=== PATIENT | male | born 1975 | race Caucasian/White ===

== ENCOUNTER 2016-09-21 08:35 | Emergency (ER) | payer BC ==
[2016-09-21 08:46] VITALS: BP 107/74
--- NOTE | 2016-09-21 09:45 | UC ---
Complaint Male HPI - HPI Summary HPI Summary: Left testicle pain onset off/on 2 days ago, worsened overnight; increased pain with palpation. He denies any recent increased activity or trauma. denies risk of infection or std as he has not had intercourse recently. no fever, no discharge. no redness or swelling. pain was 4/10 1/10 PM. He rode his bike to work last night, about 1 hr ride. several hours after that he developed severe pain escalating to 10/10. no dysuria, no hematuria. [employer] co-worker drove him here to [facility] this morning. pain is excruciating "x1000" if touched. - History of Current Complaint Chief Complaint: UCGU Stated Complaint: PERSONAL Time Seen by Provider: 09/21/16 08:43 - Allergies/Home Medications Allergies/Adverse Reactions: Allergies Allergy/AdvReac Type Severity Reaction Status Date / Time dust mites Allergy Rash Uncoded 09/21/16 08:46 Home Medications: Home Medications Ibuprofen TAB* [Motrin TAB* 800 MG] 800 mg PO ONCE PRN 09/21/16 [History Confirmed 09/21/16] PMH/Surg Hx/FS Hx/Imm Hx Previously Healthy: Yes Endocrine History Of: Denies: Diabetes, Thyroid Disease, Hyperthyroidism, Hypothyroidism, Dyslipidemia Cardiovascular History Of: Reports: Cardiac Disorders - murmur Denies: Hypertension, Pacemaker/ICD, Myocardial Infarction, Congestive Heart Failure, Atrial Fibrillation, Deep Vein Thrombosis, Bleeding Disorders Respiratory History Of: Denies: COPD, Asthma, Bronchitis, Pneumonia, Pulmonary Embolism GI/ History Of: Denies: Gastroesophageal Reflux, Ulcer, Gastrointestinal Bleed, Gall Bladder Disease, Kidney Stones, Diverticulitis, Renal Disease, Urosepsis Neurological History Of: Reports: Migraine - 2-3 TIMES A YEAR Denies: TIA, CVA, Dementia, Seizures Psychological History Of: Reports: Anxiety - NO MEDS, Depression - NO MEDS, Bipolar Disorder Denies: Schizophrenia, Post Traumatic Stress Disorder Cancer History Of: Denies: Lung Cancer, Colorectal Cancer, Breast Cancer, Prostate Cancer, Cervical Cancer Other History Of: Negative For: HIV, Hepatitis B, Hepatitis C, Anticoagulant Therapy - Surgical History Surgical History: None Surgery Procedure, Year, and Place: Facial, Left Elbow and Left Wrist Reconstruction s/p Fall, 2004. R wrist; vsasectomy 2014 or 2015 - Family History Known Family History: Positive: Other - SON HAD FLU Negative: Cardiac Disease, Hypertension, Diabetes Family History: none - Social History Alcohol Use: Rare Alcohol Amount: 1 DRINK 2 TIMES A MONTH Substance Use Type: None Smoking Status (MU): Former Smoker Type: Cigarettes Amount Used/How Often: occasional use Length of Time of Smoking/Using Tobacco: 10 YEARS Have You Smoked in the Last Year: No When Did the Patient Quit Smoking/Using Tobacco: 4-5 YRS AGO - Immunization History Most Recent Influenza Vaccination: doesn't get Most Recent Tetanus Shot: 09/25/13 Review of Systems Constitutional: Negative Skin: Negative Eyes: Negative ENT: Negative Respiratory: Negative Cardiovascular: Negative Gastrointestinal: Negative Genitourinary: Other - left testicle pain. Motor: Negative Neurovascular: Negative Musculoskeletal: Negative Neurological: Negative Psychological: Negative All Other Systems Reviewed And Are Negative: Yes Physical Exam Triage Information Reviewed: Yes Appearance: Pain Distress Vital Signs: Initial Vital Signs Temp 98.3 F 09/21/16 08:39 Pulse 89 09/21/16 08:39 Resp 28 09/21/16 08:39 BP 107/74 09/21/16 08:39 Vital Signs Reviewed: Yes Eye Exam: Normal ENT Exam: Normal Neck exam: Normal Neck: Positive: Supple, Nontender, No Lymphadenopathy Respiratory: Positive: Lungs clear Cardiovascular Exam: Normal Cardiovascular: Positive: RRR, No Murmur, Pulses Normal, Brisk Capillary Refill Abdomen Description: Positive: Nontender, Soft Musculoskeletal Exam: Normal Neurological Exam: Normal Psychological Exam: Normal Skin Exam: Normal - Additional Comments exam - left testicle with mild swelling adn mild erythema, nml temp to touch. he has extreme pain with palpation which makes exam very difficult. He is sitting in chairin supine position with pelvic off the chair and still is very uncomfortable. when ambulating he walks very slowly with wide gait and has to stop to rest on the wall. Exam done with MARIAH, RN present. there is no penile d /c or lesions. 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 Staff called Dr Ramires's office to inquire and there was no answer around 0940. Closest next ER is [facility] [place] that he agrees to go to via ambulance. I feel that bc risk of surgical emergency with potential torsion, [facility] [place] is the closest ER and will therefore go there. He is very agreeable with this plan and transfer via ambulance and understand complications of testicular failure, infertility, permanent disability if not addressed. Of note, Udip was neg except for WBCs of 75. This coulc be epididymitis, however, given the extreme nature of his pain and recent bike ride , torsion cannot be ruled out. - Differential Dx/Diagnosis Differential Diagnosis/HQI/PQRI: Epididymitis, Testicular Torsion, Urinary Tract Infection Provider Diagnoses: testicle pain - Physician Notifications Discussed Patient Care With: Dr Angulo at [facility] [place] [facility], [facility]. Reviewed pt and care and plan. He is accepts pt. Time Discussed With Above Provider: 09:55 Discharge - Discharge Plan Condition: Fair Disposition: TRANS HIGHER [facility] OF CARE FAC
[2016-09-21] MEDS ORDERED: Morphine INJ* 2 MG/ML 1 ML CARPUJECT IV ONE (09:55)
== END 2016-09-21 10:16 | disposition short-term general hospital (02) ==
LOC: UCCORT 08:35
DX: N50.812 Left testicular pain (principal); Z87.891 Personal history of nicotine dependence
CPT/HCPCS: 96374; 99213; G0463; J2270

== ENCOUNTER 2017-01-11 08:22 | Emergency (ER) | payer BC ==
[2017-01-11 08:37] VITALS: BP 131/70
--- NOTE | 2017-01-11 08:57 | UC ---
Lower Extremity/Ankle HPI - HPI Summary HPI Summary: dropped a 20 lb dumbbell on his left 5th digit last pm. Had to work all night. - History of Current Complaint Chief Complaint: UCLowerExtremity Stated Complaint: LEFT PINKY TOE PAIN Time Seen by Provider: 01/11/17 08:55 Hx Obtained From: Patient Onset/Duration: Sudden Onset, Lasting Hours, Still Present Severity Initially: Moderate Severity Currently: Moderate Pain Intensity: 8 Pain Scale Used: 0-10 Numeric Aggravating Factor(s): Standing Alleviating Factor(s): Nothing Able to Bear Weight: Yes - Risk Factors Gout Risk Factors: Negative DVT Risk Factors: Negative Septic Arthritis Risk Factor: Negative - Allergies/Home Medications Allergies/Adverse Reactions: Allergies Allergy/AdvReac Type Severity Reaction Status Date / Time dust mites Allergy Rash Uncoded 01/11/17 08:31 PMH/Surg Hx/FS Hx/Imm Hx Endocrine History Of: Denies: Diabetes, Thyroid Disease, Hyperthyroidism, Hypothyroidism, Dyslipidemia Cardiovascular History Of: Reports: Cardiac Disorders - murmur Denies: Hypertension, Pacemaker/ICD, Myocardial Infarction, Congestive Heart Failure, Atrial Fibrillation, Deep Vein Thrombosis, Bleeding Disorders Respiratory History Of: Denies: COPD, Asthma, Bronchitis, Pneumonia, Pulmonary Embolism GI/ History Of: Denies: Gastroesophageal Reflux, Ulcer, Gastrointestinal Bleed, Gall Bladder Disease, Kidney Stones, Diverticulitis, Renal Disease, Urosepsis Neurological History Of: Reports: Migraine - 2-3 TIMES A YEAR Denies: TIA, CVA, Dementia, Seizures Psychological History Of: Reports: Anxiety - NO MEDS, Depression - NO MEDS, Bipolar Disorder Denies: Schizophrenia, Post Traumatic Stress Disorder Cancer History Of: Denies: Lung Cancer, Colorectal Cancer, Breast Cancer, Prostate Cancer, Cervical Cancer Other History Of: Negative For: HIV, Hepatitis B, Hepatitis C, Anticoagulant Therapy - Surgical History Surgical History: None Surgery Procedure, Year, and Place: Facial, Left Elbow and Left Wrist Reconstruction s/p Fall, 2004. R wrist; vsasectomy 2014 or 2015 - Family History Known Family History: Negative: Cardiac Disease, Hypertension, Diabetes - Social History Occupation: Employed Full-time Alcohol Use: Occasionally Alcohol Amount: 1 DRINK 2 TIMES A MONTH Substance Use Type: None Smoking Status (MU): Former Smoker Type: Cigarettes Amount Used/How Often: occasional use Length of Time of Smoking/Using Tobacco: 10 YEARS Have You Smoked in the Last Year: No When Did the Patient Quit Smoking/Using Tobacco: 4-5 YRS AGO - Immunization History Most Recent Influenza Vaccination: doesn't get Most Recent Tetanus Shot: 09/25/13 Review of Systems Constitutional: Negative Skin: Bruising Eyes: Negative ENT: Negative Respiratory: Negative Cardiovascular: Negative Gastrointestinal: Negative Genitourinary: Negative Motor: Negative Neurovascular: Negative Musculoskeletal: Negative Neurological: Negative Psychological: Negative All Other Systems Reviewed And Are Negative: Yes Physical Exam Triage Information Reviewed: Yes Appearance: Well-Appearing, Well-Nourished, Pain Distress Vital Signs: Initial Vital Signs Temp 97.6 F 01/11/17 08:27 Pulse 77 01/11/17 08:27 Resp 14 01/11/17 08:27 BP 131/70 01/11/17 08:27 Pulse Ox 100 01/11/17 08:27 elevated BP noted Vital Signs Reviewed: Yes Eyes: Positive: Conjunctiva Clear ENT: Positive: Normal ENT inspection, Hearing grossly normal. Negative: Muffled /hoarse voice Neck: Positive: Supple Respiratory: Positive: Lungs clear, Normal breath sounds, No respiratory distress Cardiovascular: Positive: RRR, No Murmur, Pulses Normal, Brisk Capillary Refill Bowel Sounds: Positive: Present Musculoskeletal: Positive: Strength Intact, ROM Limited @, Other: - left 5th digit with purple ecchymosis at MCP and entire 5th digit Neurological Exam: Normal Psychological Exam: Normal Skin: Positive: Other - ecchymosis as above Lower Extremity Course/Dx - Course Course Of Treatment: xray left foot unofficial left 2nd phalanx fracture. - Differential Dx/Diagnosis Differential Diagnosis/HQI/PQRI: Dislocation, Fracture (Closed), Sprain, Strain Provider Diagnoses: fracture left 5th digit 2nd phalanx. elevated BP without dx HTN Discharge - Discharge Plan Condition: Stable Disposition: HOME Patient Education Materials: Crutch Instructions (ED), Toe Fracture (ED) Forms: *Work Release Referrals: Fantasma Mckeon MD [Medical Doctor] - (Dr Mckeon will see you now. ) SANNA Garcia [Primary Care Provider] -
[2017-01-11] MEDS ORDERED: Ibuprofen TAB* 600 MG PO ONE (09:14)
--- NOTE | 2017-01-12 09:54 | RAD ---
Indication: Left foot pain. 3 views of left foot demonstrates suggestion of a fracture that is nondisplaced of the proximal phalanx of the fifth digit. No significant displacement is noted. The metatarsals are intact. IMPRESSION: Nondisplaced fracture proximal phalanx fifth digit.
== END 2017-01-11 10:04 | disposition home or self-care (01) ==
LOC: UCCORT 08:22
DX: S92.515A Nondisplaced fracture of proximal phalanx of left lesser toe(s), initial encounter for closed fracture (principal); W20.8XXA Other cause of strike by thrown, projected or falling object, initial encounter; Y93.9 Activity, unspecified; Y92.9 Unspecified place or not applicable; R03.0 Elevated blood-pressure reading, without diagnosis of hypertension; R01.1 Cardiac murmur, unspecified; G43.909 Migraine, unspecified, not intractable, without status migrainosus; F41.8 Other specified anxiety disorders; Z87.891 Personal history of nicotine dependence
CPT/HCPCS: 99212; A9270-GY; G0463

== ENCOUNTER 2017-05-18 13:08 | Emergency (ER) | payer BC | END 2017-05-18 15:01 | disposition left against medical advice (07) | LOC: UCCORT 13:08 | DX: M25.562 Pain in left knee (principal); Z53.21 Procedure and treatment not carried out due to patient leaving prior to being seen by health care provider ==

== ENCOUNTER 2017-11-15 21:17 | Emergency (ER) | payer BC ==
[2017-11-15 21:23] VITALS: BP 141/75
--- NOTE | 2017-11-15 21:56 | UC ---
Dizzy HPI HPI Summary: @ episodes of vertigo tonight, "felt like someone just tipped over the world" had 2 episodes of this tonight--can be reproduced with head movement and upward gaze - History Of Current Complaint Chief Complaint: UCGeneralIllness Stated Complaint: DIZZINESS, WEAKNESS Time Seen by Provider: 11/15/17 21:32 Hx Obtained From: Patient Onset/Duration: Sudden Onset, Lasting Hours, Still Present Timing: Constant Severity Initially: Moderate Severity Currently: Moderate Pain Intensity: 5 Pain Scale Used: 0-10 Numeric Character: Room Spinning Aggravating Factor(s): Position Change - and upward gaze Associated Signs And Symptoms: Positive: Nausea - and head pressure - Allergies/Home Medications Allergies/Adverse Reactions: Allergies Allergy/AdvReac Type Severity Reaction Status Date / Time dust mites Allergy Rash Uncoded 11/15/17 21:20 PMH/Surg Hx/FS Hx/Imm Hx Previously Healthy: No Psychological History: Other Other Psychological History: mood disorder and ADHD Other History Of: Negative For: HIV, Hepatitis B, Hepatitis C, Anticoagulant Therapy - Surgical History Surgical History: None Surgery Procedure, Year, and Place: Facial, Left Elbow and Left Wrist Reconstruction s/p Fall, 2004. R wrist; vsasectomy 2014 or 2015 - Family History Known Family History: Positive: None, Other - SON HAD FLU Negative: Cardiac Disease, Hypertension, Diabetes Family History: none - Social History Occupation: Employed Full-time Lives: Alone - homeless---been living in his car begining may 2017 and has an apartment begining 12/26 Alcohol Use: Occasionally Alcohol Amount: 1 DRINK 2 TIMES A MONTH Substance Use Type: None Smoking Status (MU): Former Smoker Type: Cigarettes Amount Used/How Often: occasional use Length of Time of Smoking/Using Tobacco: 10 YEARS Have You Smoked in the Last Year: No When Did the Patient Quit Smoking/Using Tobacco: 4-5 YRS AGO - Immunization History Most Recent Influenza Vaccination: doesn't get Most Recent Tetanus Shot: 09/25/13 Review of Systems Constitutional: Negative Skin: Negative Eyes: Negative ENT: Negative Respiratory: Negative Cardiovascular: Negative Gastrointestinal: Negative Genitourinary: Negative Motor: Negative Neurovascular: Negative Musculoskeletal: Negative Neurological: Headache, Other - vertigo Psychological: Negative Is Patient Immunocompromised?: No All Other Systems Reviewed And Are Negative: Yes Physical Exam Triage Information Reviewed: Yes Appearance: No Pain Distress, Well-Nourished, Ill-Appearing Vital Signs: Initial Vital Signs Temp 97.1 F 11/15/17 21:19 Pulse 72 11/15/17 21:19 Resp 16 11/15/17 21:19 BP 141/75 11/15/17 21:19 Pulse Ox 100 11/15/17 21:19 Vital Signs Reviewed: Yes Eye Exam: Normal Eyes: Positive: Conjunctiva Clear, Other: - perrla, eomi, ENT Exam: Normal ENT: Positive: Normal ENT inspection, Hearing grossly normal, Pharynx normal, TMs normal. Negative: Nasal congestion, Nasal drainage, Tonsillar swelling, Tonsillar exudate, Trismus, Muffled voice, Hoarse voice, Dental tenderness Dental Exam: Normal Neck exam: Normal Neck: Positive: Supple, Nontender, No Lymphadenopathy Respiratory Exam: Normal Respiratory: Positive: Chest non-tender, Lungs clear, Normal breath sounds, No respiratory distress, No accessory muscle use Cardiovascular Exam: Normal Cardiovascular: Positive: RRR, No Murmur, Pulses Normal, Brisk Capillary Refill Musculoskeletal Exam: Normal Musculoskeletal: Positive: Strength Intact, ROM Intact, No Edema Neurological Exam: Normal Neurological: Positive: Alert, Muscle Tone Normal Psychological Exam: Normal Skin Exam: Normal Diagnostics - Laboratory Diagnostic Studies Completed/Ordered: ua wnl Dizzy Course/Dx - Course Course Of Treatment: saline lock, transfer to [facility] by private car - Differential Dx/Diagnosis Provider Diagnoses: Vertigo, ataxia - Physician Notifications Discussed Patient Care With: Nghia Hoffman Time Discussed With Above Provider: 21:45 Instructed by Provider To: Transfer Discharge - Discharge Plan Condition: Guarded Disposition: TRANS HIGHER [facility] OF CARE FAC Referrals: SANNA Garcia [Primary Care Provider] -
== END 2017-11-15 21:58 | disposition short-term general hospital (02) ==
LOC: UCCORT 21:17
DX: R42 Dizziness and giddiness (principal); R27.0 Ataxia, unspecified; Z87.891 Personal history of nicotine dependence
CPT/HCPCS: 81003; 99213; G0463

== ENCOUNTER 2018-04-15 11:23 | Emergency (ER) | payer BC ==
--- OUTSIDE RECORDS SUMMARY | 2018-04-15 11:33 | XMS REPORT ---
:1975 External Reference #:[id number] Author Organization [employer] Address [address] [place] [address] Phone [phone] Care Team Providers Name Role Phone Jessa Bailey MD Care Team Information [employer] Unavailable Jessa Bailey MD Primary Care Physician Unavailable Payers Type Date Identification Numbers Payment Provider Subscriber Health Maintenance Policy Number: [employer] (HMO) [id number] [facility] PayID: [id number] [address] [place] [address] Problems Description No Information Family History Date Family Member(s) Problem(s) Comments Father 60 Mother 60 : (age 37 Years) First Brother due to Liver Disease Second Brother 38 Third Brother 36 Social History Description No Information Available Allergies, Adverse Reactions, Alerts Date Description Reaction Status Severity Comments 03/28/2018 NKDA active Medications Medication Date Status Form Strength Qnty SIG Indications Ordering Provider Lamotrigine 00/00/ Active Tablets 200mg Unknown 0000 Methylphenidate // Active Tablets 20mg 1 twice a Unknown HCL 0000 day as needed attention deficit code b Sildenafil 00/ Active Tablets 20mg 2 tablets Unknown Citrate 0000 as needed Vital Signs Date Vital Result Comment 03/28/2018 Weight 196.00 lb Height 75 inches 6'3" BMI (Body Mass Index) 24.5 kg/m2 BP Systolic 122 mmHg BP Diastolic 76 mmHg Heart Rate 96 /min O2 % BldC Oximetry 99 % Body Temperature 97.8 F [place] Score 11 Neck Circumference in inches 15 Pain Level 0 Results Description No Information Procedures Description No Information Plan of Care No Information Available
--- OUTSIDE RECORDS SUMMARY | 2018-04-15 11:33 | XMS REPORT ---
:1975 External Reference #:[id number] Author Organization [employer] Address [address] [place] [address] Phone [phone] Care Team Providers Name Role Phone Jessa Bailey MD Care Team Information [facility] [employer] Unavailable Jessa Bailey MD Primary Care Physician Unavailable Payers Type Date Identification Numbers Payment Provider Subscriber Health Maintenance Policy Number: [employer] (HMO) [id number] [facility] PayID: [id number] [address] [place] [address] Problems Description No Information Family History Date [...] 00/00/ Active Tablets 200mg Unknown 0000 Methylphenidate 00/00/ Active Tablets 20mg 1 twice a Unknown HCL 0000 day as needed attention deficit code b Sildenafil 00/00/ Active Tablets 20mg 2 tablets Unknown Citrate 0000 as needed Vital Signs Date Vital Result Comment 03/28/2018 Weight 196.00 lb Height 75 inches 6'3" BMI (Body Mass Index) 24.5 kg/m2 BP Systolic 122 mmHg BP Diastolic 76 mmHg Heart Rate 96 /min O2 % BldC Oximetry 99 % Body Temperature 97.8 F [place] Score 11 Neck Circumference in inches 15 Pain Level 0 Results Description No Information Procedures Description No Information Plan of Care No Information Available
[2018-04-15 11:54] VITALS: BP 121/79
--- NOTE | 2018-04-15 12:29 | UC ---
Truncal Trauma HPI - HPI Summary HPI Summary: 42 year old male presents with right sided chest wall pain. States 2 days ago was participating in obstacle course, climbed a wall and right hand slipped striking right anterior and lateral chest on top of the wall. Reports he was able to complete the course without respiratory difficulties. Pain to site of injury that worsens with deep breath. Denies fever, chills, CP, SOB, cough, abdominal pain, N/V. - History Of Current Complaint Chief Complaint: UCGeneralIllness Stated Complaint: RIB INJURY Time Seen by Provider: 04/15/18 12:16 Hx Obtained From: Patient Onset/Duration: Sudden Onset Onset Of Pain: Post Accident Severity Initially: Mild Severity Currently: Moderate Pain Intensity: 4 Mechanism Of Injury: Blunt Trauma Aggravating Factor(s): Deep Breathing Alleviating factor(s): Nothing Associated Signs And Symptoms: Negative: SOB, Chest Pain, Cough, Abdominal Pain , Fever, Nausea - Allergies/Home Medications Allergies/Adverse Reactions: Allergies Allergy/AdvReac Type Severity Reaction Status Date / Time dust mites Allergy Rash Uncoded 04/15/18 11:50 PMH/Surg Hx/FS Hx/Imm Hx - Additional Past Medical History Additional PMH: non-contributory Other History Of: Negative For: HIV, Hepatitis B, Hepatitis C, Anticoagulant Therapy - Surgical History Surgical History: None Surgery Procedure, Year, and Place: Facial, Left Elbow and Left Wrist Reconstruction s/p Fall, 2004. R wrist; vsasectomy 2014 or 2015 - Family History Known Family History: Positive: None, Other - non-contributory Negative: Cardiac Disease, Hypertension, Diabetes Family History: none - Social History Occupation: Employed Full-time Lives: Alone Alcohol Use: Occasionally Alcohol Amount: 1 DRINK 2 TIMES A MONTH Substance Use Type: None Smoking Status (MU): Former Smoker Type: Cigarettes Amount Used/How Often: occasional use Length of Time of Smoking/Using Tobacco: 10 YEARS Have You Smoked in the Last Year: No When Did the Patient Quit Smoking/Using Tobacco: 4-5 YRS AGO - Immunization History Most Recent Influenza Vaccination: doesn't get Most Recent Tetanus Shot: 09/25/13 Review of Systems Constitutional: Negative Skin: Bruising, Other - abrasion Respiratory: Other - chest wall pain Cardiovascular: Negative Gastrointestinal: Negative Is Patient Immunocompromised?: No All Other Systems Reviewed And Are Negative: Yes Physical Exam Triage Information Reviewed: Yes Appearance: Well-Appearing, No Pain Distress, Well-Nourished Vital Signs: Initial Vital Signs Temp 97.9 F 04/15/18 11:46 Pulse 77 04/15/18 11:46 Resp 18 04/15/18 11:46 BP 121/79 04/15/18 11:46 Pulse Ox 99 04/15/18 11:46 Vital Signs Reviewed: Yes Respiratory: Positive: Lungs clear, Normal breath sounds, No respiratory distress, No accessory muscle use, Other: - right anterolateral chest wall tenderness Cardiovascular: Positive: RRR, No Murmur, Pulses Normal Abdominal Exam: Normal Skin Exam: Other - right anterolateral chest wall bruising and superficial abrasions Diagnostics - Radiology No standard instances Xray Interpretation: No Acute Changes Radiology Interpretation Completed By: ED Physician - Preliminary reading by myself, Radiologist Truncal Trauma Course/Dx - Course Course Of Treatment: 42 year old male with right chest wall pain secondary to trauma. No acute respiratory distress. BBS clear. 2 view CXR without acute pathology. Naproxen 500 mg every 12 hours for pain. Cough and deep breathing exercises discussed to prevent pneumonia. Follow up with PCP in 2 weeks if no improvement. Patient verbalizes understanding and agrees with POC. - Differential Dx/Diagnosis Differential Diagnosis/HQI/PQRI: Chest Wall Contusion, Chest Wall Abrasion, Pulmonary Contusion, Rib Fracture Provider Diagnoses: Chest wall contusion Discharge - Sign-Out/Discharge Documenting (check all that apply): Patient Departure - Discharge Plan Condition: Stable Disposition: HOME Prescriptions: Naproxen [Naproxen 500 mg tab] 500 mg PO Q12HR #30 tablet. Patient Education Materials: Chest Wall Pain (ED) Forms: *Work Release Referrals: Jessa Bailey MD [Primary Care Provider] - 2 Weeks (if no improvement) Additional Instructions: Your chest X-ray today did not show any evidence of a rib fracture however there is still a possibility of a small non-displaced fracture that is not evident on X-ray. Take naproxen 500 mg 1 tab every 12 hours with food for next 7 days then may take every 12 hours as needed. Do the deep breathing exercises that were shown to you every 1-2 hours while awake to help prevent complications of a chest wall injury including pneumonia. Use a pillow or folded towel to splint the painful area while performing these exercises. - Billing Disposition and Condition Condition: STABLE Disposition: Home
--- NOTE | 2018-04-15 13:01 | RAD ---
INDICATION: Chest wall pain. Fall. COMPARISON: None TECHNIQUE: PA and lateral dual-energy views were obtained. FINDINGS: Bones/Soft Tissues: There are no acute bony findings. Cardiomediastinal: The cardiomediastinal silhouette is normal. Lungs: There are no infiltrates. There is no pneumothorax. Pleura: There are no pleural effusions. Other: None IMPRESSION: NO ACTIVE DISEASE.
== END 2018-04-15 13:19 | disposition home or self-care (01) ==
LOC: UCCORT 11:23
DX: S20.211A Contusion of right front wall of thorax, initial encounter (principal); W22.09XA Striking against other stationary object, initial encounter; Y93.89 Activity, other specified; Y92.89 Other specified places as the place of occurrence of the external cause; Z87.891 Personal history of nicotine dependence
CPT/HCPCS: 71046; 99212; G0463

== ENCOUNTER 2018-08-29 12:50 | Emergency (ER) | payer BC, OTHER ==
[2018-08-29 13:19] VITALS: BP 125/76
--- NOTE | 2018-08-29 13:47 | UC ---
Neck Pain HPI - HPI Summary HPI Summary: posterior neck pain x 10 days s/p fall on ice 10 days ago , hit his head and caused a twist of his rupa pain is 3 out of 10 , no radiation, no tingling or numbness of upper ext, - History of Current Complaint Chief Complaint: UCBackPain Stated Complaint: W/C NECK INJURY Time Seen by Provider: 08/29/18 13:16 Hx Obtained From: Patient Timing: Constant Onset/Duration: Sudden Onset, Lasting Days - 10, Still Present Severity: Moderate Pain Intensity: 3 Location: Discrete At: - posterior neck Character: Aching Aggravating Factors: Movement Alleviating Factors: Massage Associated Signs & Symptoms: Negative: Swelling, Redness, Bruising, Fever, Nuchal Rigity, Weakness, Headache, Paresthesia - Allergies/Home Medications Allergies/Adverse Reactions: Allergies Allergy/AdvReac Type Severity Reaction Status Date / Time dust mites Allergy Rash Uncoded 08/29/18 13:14 Home Medications: Home Medications Naproxen [Naproxen 500 mg tab] 500 mg PO Q12HR PRN 08/29/18 [History Confirmed 08/29/18] PMH/Surg Hx/FS Hx/Imm Hx Previously Healthy: Yes Other History Of: Negative For: HIV, Hepatitis B, Hepatitis C, Anticoagulant Therapy - Surgical History Surgical History: Yes Surgery Procedure, Year, and Place: Facial, Left Elbow and Left Wrist Reconstruction s/p Fall, 2004. R wrist; vasectomy 2014 or 2015 - Family History Known Family History: Positive: None, Other - non-contributory Negative: Cardiac Disease, Hypertension, Diabetes Family History: none - Social History Alcohol Use: Occasionally Alcohol Amount: 1 DRINK 2 TIMES A MONTH Substance Use Type: None Smoking Status (MU): Former Smoker Type: Cigarettes Amount Used/How Often: occasional use Length of Time of Smoking/Using Tobacco: 10 YEARS Have You Smoked in the Last Year: No When Did the Patient Quit Smoking/Using Tobacco: 4-5 YRS AGO - Immunization History Most Recent Influenza Vaccination: doesn't get Most Recent Tetanus Shot: 09/25/13 Review Of Systems Constitutional: Positive: Negative Skin: Positive: Negative Eyes: Positive: Negative ENT: Positive: Negative Respiratory: Positive: Negative Cardiovascular: Positive: Negative All Other Systems Reviewed And Are Negative: No Physical Exam Triage Information Reviewed: Yes Appearance: Well-Appearing, No Pain Distress, Well-Nourished Vital Signs: Initial Vital Signs Temp 98 F 08/29/18 13:15 Pulse 99 08/29/18 13:15 Resp 15 08/29/18 13:15 BP 125/76 08/29/18 13:15 Pulse Ox 100 08/29/18 13:15 Eyes: Positive: Conjunctiva Clear ENT Exam: Normal ENT: Positive: Normal ENT inspection, Hearing grossly normal, Pharynx normal Neck: Positive: Tenderness @ - c7 and c8. Negative: No Lymphadenopathy, Enlarged Nodes @ Respiratory Exam: Normal Respiratory: Positive: Chest non-tender, Lungs clear, Normal breath sounds Cardiovascular: Positive: RRR, No Murmur, Pulses Normal Diagnostics - Laboratory Diagnostic Studies Completed/Ordered: cervical spine: IMPRESSION: STRAIGHTENING WITH REVERSAL OF THE NORMAL CERVICAL LORDOSIS. DEGENERATIVE DISC DISEASE MOST PRONOUNCED AT C5-C6. Neck Pain Course/Dx - Differential Dx/Diagnosis Provider Diagnosis: Neck pain Discharge - Sign-Out/Discharge Documenting (check all that apply): Patient Departure All imaging exams completed and their final reports reviewed: Yes - Discharge Plan Condition: Stable Disposition: HOME Patient Education Materials: Neck Pain (ED) Referrals: Roseanna Lindquist [Primary Care Provider] - If Needed - Billing Disposition and Condition Condition: STABLE Disposition: Home
== END 2018-08-29 13:56 | disposition home or self-care (01) ==
LOC: UCCORT 12:50
DX: M54.2 Cervicalgia (principal); Z87.891 Personal history of nicotine dependence
CPT/HCPCS: 72040; 99211; G0463

== ENCOUNTER 2018-09-19 20:03 | Emergency (ER) | payer OTHER ==
[2018-09-19 20:24] VITALS: BP 119/71
[2018-09-19] MEDS ORDERED: Ketorolac INJ* 60 MG/2 ML VIAL IM ONE (20:43)
--- NOTE | 2018-09-19 20:53 | UC ---
Neck Pain HPI - HPI Summary HPI Summary: Patient sustained an injury on 08/21/18, he fell on ice, hit the back of his head on the ice and it bounced forward, hitting the chin to his chest. was seen on 08/29/18 at that time an xray was obtained which showed a straightening of the cervical lordosis and DJD of c5-c6. follow up was recommended if no improvement. Patient presents today sitting in chair. Shoulders are slumped bilaterally and patient has a very head forward posture. He is unable to lift his arms above 90 degrees without pain. Pain seems to be connected to shoulder movement. describes the pain as burning when movement of the shoulder and head are performed. he has taken ibuprofen, has not tried to heat or stretch. there is no deformity. Pain and burning are centered around C7. - History of Current Complaint Chief Complaint: UCBackPain Stated Complaint: NECK COMPLAINT Time Seen by Provider: 09/19/18 20:19 Hx Obtained From: Patient Mechanism Of Injury: Blunt Trauma Timing: Constant Onset/Duration: Gradual Onset Severity: Moderate Pain Intensity: 4 Character: Stiff, Spasmotic, Burning Aggravating Factors: Position, Movement Alleviating Factors: Nothing Associated Signs & Symptoms: Positive: Paresthesia - Allergies/Home Medications Allergies/Adverse Reactions: Allergies Allergy/AdvReac Type Severity Reaction Status Date / Time dust mites Allergy Rash Uncoded 09/19/18 20:22 PMH/Surg Hx/FS Hx/Imm Hx Previously Healthy: Yes Other History Of: Negative For: HIV, Hepatitis B, Hepatitis C, Anticoagulant Therapy - Surgical History Surgical History: Yes Surgery Procedure, Year, and Place: Facial, Left Elbow and Left Wrist Reconstruction s/p Fall, 2004. R wrist; vasectomy 2014 or 2015 - Family History Known Family History: Positive: None, Other - non-contributory Negative: Cardiac Disease, Hypertension, Diabetes Family History: none - Social History Alcohol Use: Occasionally Alcohol Amount: 1 DRINK 2 TIMES A MONTH Substance Use Type: None Smoking Status (MU): Former Smoker Type: Cigarettes Amount Used/How Often: occasional use Length of Time of Smoking/Using Tobacco: 10 YEARS Have You Smoked in the Last Year: No When Did the Patient Quit Smoking/Using Tobacco: 4-5 YRS AGO - Immunization History Most Recent Influenza Vaccination: doesn't get Most Recent Tetanus Shot: 09/25/13 Review Of Systems Constitutional: Positive: Negative Skin: Positive: Negative Eyes: Positive: Negative ENT: Positive: Negative Respiratory: Positive: Negative Cardiovascular: Positive: Negative Gastrointestinal: Positive: Negative Genitourinary: Positive: Negative Musculoskeletal: Positive: Arthralgia, Decreased ROM, Myalgia Neurological: Positive: Negative Psychological: Positive: Negative All Other Systems Reviewed And Are Negative: No Physical Exam Triage Information Reviewed: Yes Appearance: Well-Appearing, Well-Nourished, Pain Distress Vital Signs: Initial Vital Signs Temp 98.5 F 09/19/18 20:21 Pulse 80 09/19/18 20:21 Resp 18 09/19/18 20:21 BP 119/71 09/19/18 20:21 Pulse Ox 100 09/19/18 20:21 Vital Signs Reviewed: Yes Eye Exam: Normal ENT Exam: Normal Dental Exam: Normal Neck exam: Normal Neck: Positive: Supple, No Lymphadenopathy, Tenderness @ - C7 and along the posterior musculature Respiratory Exam: Normal Respiratory: Positive: Chest non-tender, Lungs clear, Normal breath sounds Cardiovascular Exam: Normal Cardiovascular: Positive: RRR, No Murmur, Pulses Normal Abdominal Exam: Normal Abdomen Description: Positive: Nontender, No Organomegaly, Soft Bowel Sounds: Positive: Present Musculoskeletal: Positive: Strength Intact, No Edema, Strength Limited @, ROM Limited @ - due to pain in ext and abduction of shoulders. Rotation of the neck , flex of the neck Neurological Exam: Normal Psychological Exam: Normal Skin Exam: Normal Neck Pain Course/Dx - Course Course Of Treatment: hx obtained, exam performed ,meds reviewed, ROM assessed, old chart reviewed. Discussed stretfhcing and heating to do for the next few days and PT referral given. Suggested contacting Dr serrano in occupational health for continuation of care as well. toradol shot given - Differential Dx/Diagnosis Provider Diagnosis: Cervical myofascial strain Discharge - Sign-Out/Discharge Documenting (check all that apply): Patient Departure All imaging exams completed and their final reports reviewed: No Studies - Discharge Plan Condition: Stable Disposition: HOME Patient Education Materials: Cervical Strain (ED), Cervical Sprain (ED) Referrals: Roseanna Lindquist [Primary Care Provider] - Additional Instructions: 1. Do not take any ibuprofen or Tylenol until 4 am. 2. Heat the neck area and start with some gentle stretching. 3. Follow up with PT for care of your injury - Billing Disposition and Condition Condition: STABLE Disposition: Home
== END 2018-09-19 21:20 | disposition home or self-care (01) ==
LOC: UCCORT 20:03
DX: S16.1XXD Strain of muscle, fascia and tendon at neck level, subsequent encounter (principal); W00.0XXD Fall on same level due to ice and snow, subsequent encounter; Z87.891 Personal history of nicotine dependence
CPT/HCPCS: 96372; 99211; G0463; J1885

== ENCOUNTER 2018-10-01 09:27 | Emergency (ER) | payer OTHER ==
[2018-10-01 10:39] VITALS: BP 113/63
--- NOTE | 2018-10-01 10:51 | UC ---
Neck Pain HPI - HPI Summary HPI Summary: posterior neck pain x 2 weeks s/p fall , hyperflexing his neck , pain is 5 out of 10 , no radiation , worse with any neck movements and better with rest and Flexeril no weakness of upper ext. - History of Current Complaint Chief Complaint: UCBackPain Stated Complaint: BACK PAIN Time Seen by Provider: 10/01/18 10:39 Hx Obtained From: Patient Onset/Duration Of Injury/Symptoms: Weeks Timing: Constant Onset/Duration: Sudden Onset, Lasting Weeks - 2, Still Present Severity: Moderate Pain Intensity: 5 Location: Discrete At: - posterior neck Character: Aching, Stiff, Spasmotic Aggravating Factors: Movement Alleviating Factors: Heat, Massage Associated Signs & Symptoms: Negative: Swelling, Redness, Bruising, Fever, Nuchal Rigity, Weakness, Headache, Paresthesia - Allergies/Home Medications Allergies/Adverse Reactions: Allergies Allergy/AdvReac Type Severity Reaction Status Date / Time dust mites Allergy Rash Uncoded 10/01/18 10:32 Home Medications: Home Medications Ibuprofen TAB* [Motrin TAB* 600 MG] 600 mg PO BID PRN 10/01/18 [History Confirmed 10/01/18] Naproxen Sodium [Naproxen 220 mg] 440 mg PO BID PRN 10/01/18 [History Confirmed 10/01/18] PMH/Surg Hx/FS Hx/Imm Hx - Additional Past Medical History Additional PMH: cervical strain Other History Of: Negative For: HIV, Hepatitis B, Hepatitis C, Anticoagulant Therapy - Surgical History Surgical History: Yes Surgery Procedure, Year, and Place: Facial, Left Elbow and Left Wrist Reconstruction s/p Fall, 2004. R wrist; vasectomy 2014 or 2015 - Family History Known Family History: Positive: None, Other - non-contributory Negative: Cardiac Disease, Hypertension, Diabetes Family History: none - Social History Alcohol Use: Occasionally Alcohol Amount: 1 DRINK 2 TIMES A MONTH Substance Use Type: None Smoking Status (MU): Former Smoker Type: Cigarettes Amount Used/How Often: occasional use Length of Time of Smoking/Using Tobacco: 10 YEARS Have You Smoked in the Last Year: No When Did the Patient Quit Smoking/Using Tobacco: 4-5 YRS AGO - Immunization History Most Recent Influenza Vaccination: doesn't get Most Recent Tetanus Shot: 09/25/13 Review Of Systems Constitutional: Positive: Negative Skin: Positive: Negative Eyes: Positive: Negative ENT: Positive: Negative Respiratory: Positive: Negative Cardiovascular: Positive: Negative All Other Systems Reviewed And Are Negative: No Physical Exam Triage Information Reviewed: Yes Appearance: Well-Nourished, Pain Distress Vital Signs: Initial Vital Signs Temp 97.4 F 10/01/18 10:32 Pulse 73 10/01/18 10:32 Resp 16 10/01/18 10:32 BP 113/63 10/01/18 10:32 Pulse Ox 100 10/01/18 10:32 Vital Signs Reviewed: Yes Eyes: Positive: Conjunctiva Clear ENT: Positive: Normal ENT inspection, Hearing grossly normal, Pharynx normal Neck: Positive: Tenderness @, Other: - decrease ROM on flexion and rotation. Negative: No Lymphadenopathy Respiratory Exam: Normal Respiratory: Positive: Chest non-tender, Lungs clear, Normal breath sounds Cardiovascular: Positive: RRR, No Murmur, Pulses Normal Skin Exam: Normal Neck Pain Course/Dx - Differential Dx/Diagnosis Provider Diagnosis: Cervical strain Discharge - Sign-Out/Discharge Documenting (check all that apply): Patient Departure All imaging exams completed and their final reports reviewed: No Studies - Discharge Plan Condition: Stable Disposition: HOME Prescriptions: Cyclobenzaprine TAB* [Flexeril 10 MG TAB*] 10 mg PO BID PRN #20 tab PRN Reason: Pain Patient Education Materials: Cervical Strain (ED) Forms: *Work Release Referrals: Roseanna Lindquist [Primary Care Provider] - 2 Weeks - Billing Disposition and Condition Condition: STABLE Disposition: Home
== END 2018-10-01 10:49 | disposition home or self-care (01) ==
LOC: UCCORT 09:27
DX: S16.1XXA Strain of muscle, fascia and tendon at neck level, initial encounter (principal); W19.XXXA Unspecified fall, initial encounter; Y92.9 Unspecified place or not applicable; Z87.891 Personal history of nicotine dependence
CPT/HCPCS: 99212; G0463

== ENCOUNTER 2019-10-28 12:15 | Emergency (ER) | payer BC ==
[2019-10-28 12:34] VITALS: BP 111/70
--- NOTE | 2019-10-28 12:50 | UC ---
Throat Pain/Nasal Rafat HPI - HPI Summary HPI Summary: sore throat x 4 weeks pain is 2 out 10 , nothing makes it better or worse no cold symptoms, no cough , no pnd denies any fever, no chills, no body aches rash on left arm x 2 weeks, rash is itchy and burning, no know contacts with chemical or plants, - History of Current Complaint Chief Complaint: UCRespiratory Stated Complaint: SORE THROAT Time Seen by Provider: 10/28/19 12:22 Hx Obtained From: Patient Onset/Duration: Gradual Onset, Lasting Weeks - 4, Still Present Severity: Moderate Pain Intensity: 2 Cough: None Associated Signs & Symptoms: Negative: Drooling, Wheezing, Hoarseness, Sinus Discomfort, Nasal Discharge, Fever, Rash - Allergies/Home Medications Allergies/Adverse Reactions: Allergies Allergy/AdvReac Type Severity Reaction Status Date / Time dust mites Allergy Rash Uncoded 10/09/19 16:11 Home Medications: Home Medications Ibuprofen TAB* [Motrin TAB* 600 MG] 600 mg PO ONCE PRN 10/28/19 [History Confirmed 10/28/19] PMH/Surg Hx/FS Hx/Imm Hx Previously Healthy: Yes Other History Of: Negative For: HIV, Hepatitis B, Hepatitis C, Anticoagulant Therapy - Surgical History Surgical History: Yes Surgery Procedure, Year, and Place: Facial, Left Elbow and Left Wrist Reconstruction s/p 2004; R wrist; vasectomy; testicular torsion - Family History Known Family History: Positive: None, Other - non-contributory Negative: Cardiac Disease, Hypertension, Diabetes Family History: none - Social History Alcohol Use: Weekly Alcohol Amount: 2 drinks Substance Use Type: None Smoking Status (MU): Former Smoker Type: Cigarettes Amount Used/How Often: occasional use Length of Time of Smoking/Using Tobacco: 10 YEARS Have You Smoked in the Last Year: No When Did the Patient Quit Smoking/Using Tobacco: 4-5 YRS AGO - Immunization History Most Recent Influenza Vaccination: doesn't get Most Recent Tetanus Shot: 09/25/13 Review of Systems All Other Systems Reviewed And Are Negative: Yes Constitutional: Positive: Negative Skin: Positive: Rash Eyes: Positive: Negative ENT: Positive: Sore Throat Respiratory: Positive: Negative Is Patient Immunocompromised?: No Physical Exam Triage Information Reviewed: Yes Appearance: Well-Appearing, No Pain Distress, Well-Nourished Vital Signs: Initial Vital Signs Temp 98.2 F 10/28/19 12:23 Pulse 74 10/28/19 12:23 Resp 18 10/28/19 12:23 BP 111/70 10/28/19 12:23 Pulse Ox 98 10/28/19 12:23 Vital Signs Reviewed: Yes Eye Exam: Normal Eyes: Positive: Conjunctiva Clear ENT: Positive: Normal ENT inspection, Hearing grossly normal, Pharynx normal, TMs normal. Negative: Pharyngeal erythema, Nasal congestion, Nasal drainage Neck: Positive: Supple, Nontender, No Lymphadenopathy Respiratory: Positive: Chest non-tender, Lungs clear, Normal breath sounds Cardiovascular: Positive: RRR, No Murmur, Pulses Normal Skin: Positive: Rashes - maculopapular rash left proximal foream , +erythema, no tenderness, no discharge, Throat Pain/Nasal Course/Dx - Differential Dx/Diagnosis Provider Diagnosis: Pharyngitis, Contact dermatitis Discharge ED - Sign-Out/Discharge Documenting (check all that apply): Patient Departure All imaging exams completed and their final reports reviewed: No Studies - Discharge Plan Condition: Stable Disposition: HOME Prescriptions: Triamcinolone 0.1% CREAM (NF) [Kenalog 0.1% Cream (NF)] 1 applic TOPICAL BID # 60 gm Patient Education Materials: Contact Dermatitis (ED), Pharyngitis (ED) Referrals: No Primary Care Phys,NOPCP [Primary Care Provider] - 2 Weeks - Billing Disposition and Condition Condition: STABLE Disposition: Home
== END 2019-10-28 12:59 | disposition home or self-care (01) ==
LOC: UCCORT 12:15
DX: J02.9 Acute pharyngitis, unspecified (principal); L25.9 Unspecified contact dermatitis, unspecified cause; R09.81 Nasal congestion; Z87.891 Personal history of nicotine dependence; Z91.09 Other allergy status, other than to drugs and biological substances
CPT/HCPCS: 87651; 99211; G0463